=== PATIENT | female | born 1995 | race Caucasian/White ===

== ENCOUNTER 2018-07-05 23:17 | Emergency (ER) | payer MEDICAID ==
[~2018-07-05] VITALS: Ht 175.3 cm; Wt 60.0 kg
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
--- NOTE | 2018-07-05 23:22 | NUR ---
Provider at bedside for pt eval at this time.
--- NOTE | 2018-07-05 23:30 | NUR ---
Late entry: All belongings collected and placed in locker, belonging bags labeled.
--- NOTE | 2018-07-05 23:36 | NUR ---
Pt ambulated to restroom with steady gait for urine sample, urine sent to lab. EKG in progress. Pt placed on heart and VS monitoring. IV placed, blood drawn. Pt VSS at this time. to bedside for pt eval complete.
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
[2018-07-05] MEDS ORDERED: CHARCOAL/SORBITOL 50 GM/240 ML ONE (23:42)
[2018-07-05 23:46] LABS: BASOPHILS # (AUTO) 0.05 x10^3/uL (0-0.1); BASOPHILS % (AUTO) 1 % (0-1); EOSINOPHILS # (AUTO) 0.39 x10^3/uL (0-0.4); EOSINOPHILS % (AUTO) 4 % (1-7); LYMPHOCYTES # (AUTO) 3.85 x10^3/uL (1-3.4); LYMPHOCYTES % (AUTO) 41 % (22-44); MD NO; MEAN CORPUSCULAR HGB CONC 34.9 g/dL (32.4-35.8); MEAN CORPUSCULAR VOLUME 91.7 fL (80-100); MONOCYTES # (AUTO) 0.35 x10^3/uL (0.2-0.8); MONOCYTES % (AUTO) 4 % (2-9); NEUTROPHILS # (AUTO) 4.65 x10^3/uL (1.8-6.8); NEUTROPHILS % (AUTO) 50 % (42-75); PLATELET COUNT 306 x10^3/uL (130-400); RED BLOOD COUNT 4.53 x10^6/uL (3.82-5.3); RED CELL DISTRIBUTION WIDTH 13.8 % (9.6-15.2)
[2018-07-05 23:57] LABS: ALANINE AMINOTRANSFERASE 32 U/L (12-78); ALBUMIN 4.1 g/dL (3.4-5.0); ANION GAP 12 mmol/L (5-15); CHLORIDE 112 mmol/L (98-107); CREATININE 0.83 mg/dL (0.55-1.02); SALICYLATE LEVEL 3.3 mg/dL (2.8-20.0)
[2018-07-05 23:59] LABS: AMPHETAMINE SCREEN, URINE Negative (Negative); BARBITURATE SCREEN, URINE Negative (Negative); BENZODIAZEPINE SCREEN, URINE Negative (Negative); CANNABINOID SCREEN, URINE Positive (Negative); COCAINE SCREEN, URINE Negative (Negative); METHADONE SCREEN, URINE Negative (Negative); OPIATE SCREEN, URINE Negative (Negative)
--- NOTE | 2018-07-05 23:59 | NUR ---
Pt drank all of med per orders, see emar. diazo technician at bedside for breathalyzer. Pt pleasant and cooperative. Pt has concerns about her child, pt encouraged to participate in her care to be able to get home for her child.
[2018-07-06] MEDS ORDERED: CHARCOAL/SORBITOL 50 GM/240 ML PO ONE
[2018-07-06 00:02] LABS: ACETAMINOPHEN < 2 mcg/mL (10-30); ALKALINE PHOSPHATASE 67 U/L (45-117); BILIRUBIN,TOTAL 0.3 mg/dL (0.2-1.0); TOTAL PROTEIN 7.3 g/dL (6.4-8.2)
--- NOTE | 2018-07-06 00:13 | NUR ---
Pt resting in bed, does not appear to be in distress. VSS. Pt calm and pleasant. will continue to monitor.
--- NOTE | 2018-07-06 00:33 | NUR ---
Pt resting comfortably in bed, VSS. Pt awaiting psych eval.
--- NOTE | 2018-07-06 01:10 | NUR ---
Break RN: Pt sleeping with resp even and unlabored. Easily awakens and respositions self in bed. Warm blanket given. Pt remains on monitors. VSS. Awaiting telepsych when pt is sober.
--- NOTE | 2018-07-06 01:30 | NUR ---
Pt awakens to verbal stimuli, otherwise appears comfortable. VSS. no acute distress noted. will continue to monitor.
--- NOTE | 2018-07-06 02:07 | NUR ---
Pt resting comfortably in bed, pt sleeping. pt breathing E/U, repositions self in bed. monitor continues in place. no acute distress noted.
--- NOTE | 2018-07-06 02:53 | NUR ---
notified of breathalyzer. Pt ambulated to restroom and back to room with steady gait. VSS. no acute distress noted. staff at door for continuous monitoring.
--- NOTE | 2018-07-06 03:22 | NUR ---
Provider to bedside for pt update complete. pt having emesis at this time. Zofran to be given.
[2018-07-06] MEDS ORDERED: ONDANSETRON ODT 4 MG ONE (03:23)
--- NOTE | 2018-07-06 03:26 | NUR ---
Pt recieved zofran per orders, see emar. Pt resting in bed. will monitor for zofran effectiveness.
[2018-07-06] MEDS ORDERED: ONDANSETRON ODT 4 MG PO ONE (03:30)
--- NOTE | 2018-07-06 03:50 | NUR ---
Pt reports improved nausea. pt states she is worried about her daughter. Pt reassured. Pt calm and cooperative. VSS. pt continues on cardiac and VS monitoring. staff at door continues for continuous monitoring. no acute distress noted at this time.
--- NOTE | 2018-07-06 04:22 | NUR ---
Pt awake, resting in bed. no emesis noted since zofran given. Pt reports feeling slightly better. will continue to monitor.
--- NOTE | 2018-07-06 04:34 | NUR ---
Pt ambulated to restroom with steady gait.
--- NOTE | 2018-07-06 04:49 | NUR ---
Pt back in bed, VSS, monitor in place. staff monitoring continues at pt door. Pt reports nausea has resolved. Pt awaiting telepsych consult.
--- NOTE | 2018-07-06 05:48 | NUR ---
Pt completed with telepsych. EDMD to bedside for update.
--- NOTE | 2018-07-06 05:56 | NUR ---
Pt ambulated to restroom and back to room with steady gait. pt in bed, no changes. pt a/ox4, breathing E/U. no acute distress noted.
--- NOTE | 2018-07-06 06:08 | NUR ---
Pt continues to report SHIELDS. MD Dalye notified. Verbal order for Tylenol 1000mg PO x1.
[2018-07-06] MEDS ORDERED: ACETAMINOPHEN 500 MG TABLET ONE (06:11)
[2018-07-06] MEDS ORDERED: ACETAMINOPHEN 500 MG TABLET PO ONE (06:30)
--- NOTE | 2018-07-06 06:32 | NUR ---
Pt continues on monitor. Pt recieved tylenol per orders, see emar. Pt resting comfortably. states she wants to sleep but her mind is racing so she is having difficulty. pt reassured. call light in reach.
--- NOTE | 2018-07-06 06:44 | NUR ---
PT WITH [facility] INSURANCE. CJ WITH [facility]ED [facility] DENIED TRANSFER. BURAK WITH [facility] ALSO DENIED TRANSFER
--- NOTE | 2018-07-06 06:50 | NUR ---
Patient with medicaid [employer] insurance so packet faxed to [facility], [facility], Toni Mckeon, and [place] . Conformations received.
--- NOTE | 2018-07-06 07:04 | NUR ---
Report from Lela DAVIS.
--- NOTE | 2018-07-06 07:11 | NUR ---
Report to Marie DAVIS.
[2018-07-06] MEDS ORDERED: SERT50TA PO (07:50)
--- NOTE | 2018-07-06 07:51 | NUR ---
Spoke to Nicole from [facility] and gave her report on the pt. She stated that they will call back if they get an addmitting doctor.
--- NOTE | 2018-07-06 08:05 | NUR ---
Per ED RN Tony, poison control stated patient needs to be monitored until noon then hospitalist will see the patient and determine if patient is medicaly cleared to come up to the holding unit.
--- NOTE | 2018-07-06 08:11 | NUR ---
Pt given breakfast to eat.
--- NOTE | 2018-07-06 08:44 | NUR ---
THROUGHPUT: PER SABRINA FROM [facility], ADMITTING DR ESTRADA PT.
--- NOTE | 2018-07-06 09:45 | NUR ---
pt ambulated to the phone with steady gait.
--- NOTE | 2018-07-06 09:50 | NUR ---
pt given water to drink.
--- NOTE | 2018-07-06 10:17 | NUR ---
Spoke with poison controll and gave them an update. They stated that they will close out the call.
--- NOTE | 2018-07-06 10:46 | NUR ---
Pt is resting in bed, respirations equal and non labored. NAD. Pt is connected to the monitor. Call light within reach. Sitter outside the room.
[2018-07-06 11:31] VITALS: BP 107/54
--- NOTE | 2018-07-06 11:32 | NUR ---
Pt is resting in bed, respirations equal and non labored. NAD. Pt is connected to the monitor. Call light within reach. Sitter outside the room.
--- NOTE | 2018-07-06 11:36 | NUR ---
Nicole called from [facility] and she was given an update.
--- NOTE | 2018-07-06 12:07 | NUR ---
Pt ambulated to bathroom with steady gait. Sitter outside the room.
--- NOTE | 2018-07-06 12:19 | NUR ---
Pt given lunch to eat.
--- NOTE | 2018-07-06 12:37 | NUR ---
THROUGHPUT: INFO GIVEN TO [facility]. ORIGINAL LEGAL HOLD WITH [employer].
--- NOTE | 2018-07-06 12:37 | NUR ---
[facility] reps at bedside. Akbar here to take her to [facility]. Pts belongings given to Akbar.
--- NOTE | 2018-07-06 13:09 | NUR ---
Pt taken to [facility] by Akbar.
== END 2018-07-06 13:09 ==
LOC: ED 07-06 00:48 → UNDOADMOB 07-06 06:51 → EDIP 07-06 06:51 → ED 07-06 13:09 → UNDODISOB 07-06 13:22
DX: T43.221A Poisoning by selective serotonin reuptake inhibitors, accidental (unintentional), initial encounter (principal); F10.120 Alcohol abuse with intoxication, uncomplicated; F32.9 Major depressive disorder, single episode, unspecified; F17.210 Nicotine dependence, cigarettes, uncomplicated
CPT/HCPCS: 36415; 80053; 80307; 80329; 84703; 85025; 93005; 99284; Q0162; G0378; G0480